=== PATIENT | female | born 1950 | race Caucasian/White ===

== ENCOUNTER 2022-11-27 20:22 | Emergency (ER) | payer MEDICARE, OTHER ==
[~2022-11-27] VITALS: Ht 167.6 cm; Wt 77.1 kg
[2022-11-27] MEDS ORDERED: PROTONIX TR40 M1 PO (21:00)
[2022-11-27] MEDS ORDERED: COZAAR50 M1 PO (21:01)
[2022-11-27] MEDS ORDERED: MELOXICAM10 MG PO (21:01)
[2022-11-27] MEDS ORDERED: AMLODIPINE BESYL5 MG PO (21:01)
[2022-11-27] MEDS ORDERED: LIPITOR40 MG PO (21:01)
== END 2022-11-27 23:37 | disposition home or self-care (01) ==
LOC: ED 20:22
DX: S60.222A Contusion of left hand, initial encounter (principal); I10 Essential (primary) hypertension; R20.0 Anesthesia of skin; Z88.0 Allergy status to penicillin; X50.1XXA Overexertion from prolonged static or awkward postures, initial encounter; Y93.89 Activity, other specified; Y92.89 Other specified places as the place of occurrence of the external cause; Y99.8 Other external cause status